=== PATIENT | female | born 1980 | race Caucasian/White ===

== ENCOUNTER 2024-11-06 12:38 | Emergency (ER) | payer OTHER ==
[~2024-11-06] VITALS: Ht 160 cm; Wt 131.5 kg
[~2024-11-06 12:38] MED LIST: AMOX500 PO; BCP'S; CRUTCH4 USE; HYDACE5 PO; HYDPAM50 PO; IBUP400; METO10 PO; OMEP10ER; OXYACE5T PO; PROM25 PO; RXCLIN PO; TOPI50 PO; VITAMIN D310 MC1; [UNRECOGNIZED DRUG - REMARK]
[2024-11-06 13:06] VITALS: BP 173/99
[2024-11-06] MEDS ORDERED: CYCL10 PO (15:27)
[2024-11-06] MEDS ORDERED: HYDR1TAB94 PO (15:47)
[2024-11-06] MEDS ORDERED: HYDROcodone 5-APAP 325 TAB PO ONE (15:50)
== END 2024-11-06 16:03 | disposition home or self-care (01) ==
LOC: ER 12:38
DX: M75.31 Calcific tendinitis of right shoulder (principal); Z79.899 Other long term (current) drug therapy
CPT/HCPCS: 73030; 99283-25; A9270